=== PATIENT | male | born 1960 | race Caucasian/White ===

== ENCOUNTER 2020-10-07 10:25 | Outpatient (CLI) | payer MEDICARE, MEDICAID, SELFPAY ==
--- NOTE | ~2020-10-07 | XR_ITS ---
EXAMINATION: XR chest 2V DATE: 10/07/2020 10:38 INDICATION: Pleural plaque without asbestos. TECHNIQUE: Frontal and lateral views of the chest were obtained. COMPARISON: Chest 2 views 10/25/2011 FINDINGS: The chest demonstrates clear lungs without pneumonia, pleural effusion, or pneumothorax. Th e heart size is normal. IMPRESSION: 1. No acute cardiopulmonary disease. Reviewed, dictated and finalized at location A.
== END 2020-10-07 10:26 | disposition home or self-care (01) ==
PROVIDERS: PCP Internal Medicine; Visit Provider Internal Medicine
DX: J92.9 Pleural plaque without asbestos (principal)
CPT/HCPCS: 71046

== ENCOUNTER 2020-10-07 10:46 | Emergency (ER) | payer MEDICARE, MEDICAID, SELFPAY ==
[2020-10-07 11:03] VITALS: BP 170/78; PULSE 87; RESP 14; TEMP 35.8; O2SAT 100
--- NOTE | 2020-10-07 11:12 | ED.GENADULT ---
HPI - General Adult General Chief complaint: Anxiety Stated complaint: Anxiety with High Blood Pressure Time Seen by Provider: 10/07/20 10:53 Source: patient Mode of arrival: ambulatory Limitations: other (Poor historian, contradicts self throughout exam) History of Present Illness HPI narrative: Patient presents for evaluation of anxiety. He states he has an underlying history of anxiety for which she is prescribed Xanax 3 times daily as needed. He last took the medication yesterday. It sounds like he has experienced some increased stress related to visitors staying with him. He indicates he was hospitalized at [facility] about six months ago and had an abnormal CXR. He went today for follow up CXR. He states he felt increasingly anxious so decided to come to the ER for further evaluation. He has experienced intermittent chest pain over the last several years. Pain is in sternal region, without descriptive quality or numerical rating. He has experienced a popping sensation in his mouth for several years. He is a poor historian and contradicts himself throughout my interview It sounds like he had an elevated BP at home yesterday but his reading at home today was 130/80's. He also has an underlying hx of DM and is compliant with 16 units of basaglar. Related Data Home Medications Medication Instructions Recorded Confirmed alprazolam 0.5 mg tablet 0.5 mg PO TID PRN 06/05/20 09/19/20 Allergies Allergy/AdvReac Type Severity Reaction Status Date / Time No Known Allergies Allergy Verified 10/07/20 11:10 Review of Systems Review of Systems: Narrative: CONSTITUTIONAL: Denies fever, chills, or sweats. EYES: Denies visual changes, redness, or discharge. ENT: Denies rhinorrhea, congestion, sore throat, or otalgia. Reports popping sensation in the mouth CARDIOVASCULAR: Reports chronic intermittent chest pain, none currently. Denies palpitations, or edema. RESPIRATORY: Denies cough or dyspnea. GASTROINTESTINAL: Denies abdominal pain, nausea, vomiting, or diarrhea. GENITOURINARY: Denies dysuria or hematuria. SKIN: Denies rash or itching. MUSCULOSKELETAL: Denies back pain, joint pain, or myalgia. NEUROLOGIC: Denies headache, numbness, dizziness, or weakness. PSYCHIATRIC: Reports anxiety PMFSH Past Medical History Medical History Abdominal aortic aneurysm Adrenal adenoma Anxiety Arterial atherosclerosis Degenerative disc disease at L5-S1 level Diabetes mellitus Fatty liver disease, nonalcoholic Heart disease Hepatic artery stenosis HTN (hypertension) Inguinal hernia Kidney disease Peripheral neuropathy Pleural plaque Surgical History Surgical History History of shoulder surgery 2001 Family History Family History Mother Alzheimer disease Father Lung cancer Social History Social History Smoking status: Former smoker Tobacco type: cigarettes Alcohol intake: never Substance use: never Substance use type: does not use Gender identity (if verbalized by the patient): Male Exam Narrative: Exam Narrative: GENERAL: Well-appearing, well-nourished, and in no acute distress. HEAD: Normocephalic, atraumatic. EYES: PERRLA and EOMI. ENT: Nares clear, no rhinorrhea or epistaxis. Mucous membranes moist. Oropharynx without tonsillar hypertrophy exudate or other lesions. Bilateral TMs pearly ngo nonbulging NECK: Supple. No adenopathy or masses. No carotid bruits or JVD CHEST: Clear to auscultation. No respiratory distress. No wheezes rales or rhonchi HEART: Regular rate and rhythm. Normal peripheral pulses. ABDOMEN: Soft, nontender, nondistended, normal active bowel sounds. EXTREMITIES: Normal range of motion. No edema. SKIN: Warm, dry, no rash. NEURO: No focal deficits
--- NOTE | 2020-10-07 11:13 | ECG_ITS ---
Measurements Intervals [place] Rate: 66 P: 76 SC: 185 QRS: -11 QRSD: 78 T: 72 QT: 375 QTc: 395 Interpretive Statements SINUS RHYTHM WITH SINUS ARRHYTHMIA BORDERLINE R WAVE PROGRESSION, ANTERIOR LEADS BASELINE ARTIFACT- I, II, AVR, AVL BORDERLINE ECG Electronically Signed On 10-07-2020 12:13:18 CDT by Dwaine Johnson D.O.
[2020-10-07 11:25] LABS: Basophils Absolute Auto 0.1 K/mm3 (0.0-0.1); Basophils Percent Auto 0.7 % (0.2-1.2); Eosinophils Absolute Auto 0.2 K/mm3 (0-0.3); Eosinophils Percent Auto 1.9 % (0-4.4); Hemoglobin 16.8 g/dL (14.0-18.0); Immature Granulocyte Absolute 0.02 K/mm3 (0.00-0.031); Immature Granulocyte Percent A 0.2 % (0-0.5); Lymphocytes Absolute Auto 2.36 K/mm3 (0.9-3.2); Lymphocytes Percent Auto 26.3 % (18.3-44.2); Mean Corpuscular HGB Conc 33.6 g/dl (32-36); Mean Corpuscular Hemoglobin 31.3 pg (26-34); Mean Corpuscular Volume 93.1 fl (80-100); Mean Platelet Volume 11.5 fl (7.4-10.4); Monocytes Absolute Auto 0.6 K/mm3 (0.1-0.6); Monocytes Percent Auto 6.3 % (2.6-8.5); Neutrophils Absolute Auto 5.8 K/mm3 (1.3-6.7); Neutrophils Percent Auto 64.6 % (45.5-73.1); Platelet Count Result 163 k/mm3 (150-375); Red Blood Count 5.37 M/mm3 (4.6-6.20); Red Cell Distribution Width 12.6 % (11.5-14.5)
[2020-10-07 11:27] VITALS: BP 153/76; PULSE 66; RESP 14; O2SAT 99
[2020-10-07] MEDS: hydrOXYzine pamoate 25 MG CAPSULE PO (11:27)
[2020-10-07 11:34] LABS: Alanine Aminotransferase 52 U/L (4-50); Albumin Level 4.7 g/dL (3.5-5.1); Alkaline Phosphatase 71 U/L (38-126); Anion Gap 9 mmol/L (8-16); Aspartate Amino Transferase 40 U/L (17-59); Bilirubin,Total 0.9 mg/dL (0.2-1.3); Blood Urea Nitrogen 15 mg/dL (9-20); Calcium 9.5 mg/dL (8.4-10.2); Carbon Dioxide 25 mmol/L (22-30); Chloride 104 mmol/L (98-107); Estimated CRCL calculation 57 ml/min; Estimated Glomerular Filt Rate > 60; Glucose 150 mg/dL (75-110); Potassium 3.9 mmol/L (3.4-5.0); Sodium 138 mmol/L (137-145)
[2020-10-07 11:45] LABS: Troponin I < 0.012 ng/mL (0.000-0.034)
[2020-10-07 13:32] VITALS: BP 156/81; PULSE 76; RESP 14; O2SAT 99
== END 2020-10-07 13:33 | disposition home or self-care (01) ==
PROVIDERS: Emergency Provider Nurse Practitioner; PCP Internal Medicine
DX: F41.9 Anxiety disorder, unspecified (principal); N28.9 Disorder of kidney and ureter, unspecified; E11.42 Type 2 diabetes mellitus with diabetic polyneuropathy; I10 Essential (primary) hypertension; M51.37 Other intervertebral disc degeneration, lumbosacral region; I70.8 Atherosclerosis of other arteries; Z87.891 Personal history of nicotine dependence; R94.31 Abnormal electrocardiogram [ECG] [EKG]; Z79.4 Long term (current) use of insulin
CPT/HCPCS: 36415; 71046; 80053; 84443; 84484; 85025; 93005; 99284; A9270

== ENCOUNTER 2021-05-28 02:30 | Day surgery (SDC) | payer MEDICARE, MEDICAID, SELFPAY ==
[2021-05-21 14:06] VITALS: BMI 24.7
--- NOTE | 2021-05-27 10:51 | PM.HPGS ---
History of Present Illness History of Present Illness Consent: Risks, benefits, and alternatives have been discussed and questions answered. Patient agrees to proceed with procedure. Chief complaint: neoplasm screening Narrative: Say Collins is a 61 year old male who was referred for colon cancer screening Review of Systems Review of Systems: All systems reviewed & are unremarkable except as noted in HPI and below PMFSH Past Medical History Medical History Abdominal aortic aneurysm Adrenal adenoma Anxiety Arterial atherosclerosis Degenerative disc disease at L5-S1 level Diabetes mellitus Fatty liver disease, nonalcoholic Heart disease Hepatic artery stenosis HTN (hypertension) Inguinal hernia Kidney disease Peripheral neuropathy Pleural plaque Surgical History Surgical History History of shoulder surgery 2001 Family History Family History Mother Alzheimer disease Father Lung cancer Social History Social History Smoking packs per day: 1 Smoking cigarettes per day: 20.0 Years smoked: 37 Smoking pack-years: 37.00 Smoking status: Former smoker Tobacco type: cigarettes Alcohol intake: never Substance use: never Substance use type: does not use Living arrangements: alone Gender identity (if verbalized by the patient): Male Spiritual care concerns: No Meds Home Medications and Allergies Home Medications Medication Instructions Recorded Confirmed Type pen needle, diabetic 31 gauge x #100 ea 01/12/21 05/28/21 Rx 3/16 empagliflozin 10 mg tablet 10 mg PO DAILY #90 tablet 01/19/21 05/28/21 Rx atorvastatin 10 mg tablet 10 mg PO DAILY #90 tablet 02/05/21 05/28/21 Rx blood sugar diagnostic #100 ea 03/09/21 05/28/21 Rx alprazolam 0.5 mg tablet 0.5 mg PO DAILY PRN #30 tablet 03/12/21 05/28/21 Rx sildenafil 50 mg tablet 50 mg PO DAILY PRN #30 tablet MDD 03/13/21 05/28/21 Rx 100mg semaglutide 7 mg tablet 7 mg PO DAILY #30 tablet 04/16/21 05/28/21 Rx escitalopram oxalate 10 mg tablet 10 mg PO DAILY #30 tablet 05/08/21 05/28/21 Rx hydralazine 25 mg tablet 25 mg PO TID #90 tablet 05/15/21 05/28/21 Rx dulaglutide 0.75 mg/0.5 mL 0.75 mg SUBCUT WEEKLY #2 ml 05/23/21 05/28/21 Rx subcutaneous pen injector Allergies Allergy/AdvReac Type Severity Reaction Status Date / Time No Known Allergies Allergy Verified 05/28/21 11:24 Exam Resp: Auscultation: clear to auscultation bilaterally Cardio: Rate: regular rate Rhythm: regular rhythm GI: GI Palp: Yes Soft to palpation and No Tenderness to palpation present (GI) Assessment and Plan Assessment and plan (1) Colon cancer screening: Code(s): Z12.11 - Encounter for screening for malignant neoplasm of colon Status: Acute Assessment and Plan: Colonoscopy with possible biopsy or polypectomy or cautery or injection of substances.
[2021-05-28 11:18] VITALS: BP 142/73; PULSE 54; RESP 18; TEMP 36.4; O2SAT 100
[2021-05-28] MEDS: LACTATED RINGERS 1,000 ML 150 ML IV CONT (11:48)
[2021-05-28 11:49] LABS: Glucose Point of Care 105 mg/dl (65-105)
[2021-05-28 12:35] VITALS: BP 123/69; PULSE 63; RESP 15; O2SAT 99
[2021-05-28 12:45] VITALS: BP 119/74; PULSE 72; RESP 23; O2SAT 100
[2021-05-28 13:01] VITALS: BP 136/84; PULSE 62; RESP 18; O2SAT 100
== END 2021-05-28 13:11 | disposition home or self-care (01) ==
PROVIDERS: PCP Internal Medicine; Visit Provider Internal Medicine Gastroenterology
PROC: 0DJD8ZZ Inspection of Lower Intestinal Tract, Via Natural or Artificial Opening Endoscopic (ICD-10-PCS; CPT 45378; principal; 2021-05-28 12:30)
DX: Z12.11 Encounter for screening for malignant neoplasm of colon (principal); D12.8 Benign neoplasm of rectum; I70.90 Unspecified atherosclerosis; I71.4 Abdominal aortic aneurysm, without rupture; I10 Essential (primary) hypertension; K76.0 Fatty (change of) liver, not elsewhere classified; E11.42 Type 2 diabetes mellitus with diabetic polyneuropathy; F41.9 Anxiety disorder, unspecified; E11.21 Type 2 diabetes mellitus with diabetic nephropathy; M51.37 Other intervertebral disc degeneration, lumbosacral region; Z87.891 Personal history of nicotine dependence; Z79.4 Long term (current) use of insulin
CPT/HCPCS: 45385; 82948; 88305; J2704; J7120

== ENCOUNTER 2021-07-23 13:35 | Outpatient (CLI) | payer MEDICARE, MEDICAID, SELFPAY ==
--- NOTE | ~2021-07-23 | CT_ITS ---
EXAMINATION: CT abdomen w con DATE: 07/23/2021 14:14 INDICATION: Adrenal adenoma. TECHNIQUE: Computed tomography (CT) of the abdomen was performed with 100 mL Omnipaque 350 intravenou s contrast. Automated exposure control and iterative reconstruction technique were employed. The dose -length product was 223.84 mGy-cm. COMPARISON: None. FINDINGS: The visualized portions of the lung bases demonstrate mild dependent atelectasis. There is a calcified pleural plaque on the left. No pleural effusion. The heart size is normal. No pericardial effusion. The liver, gallbladder, spleen, pancreas, and left adrenal gland are normal. There is a 2. 5 cm mass in right adrenal gland measuring soft tissue attenuation. The kidneys are normal. There are no dilated loops of bowel. There are no pathologically enlarged lymph nodes. There is no free intra peritoneal fluid. There is severe lower lumbar spondylosis. IMPRESSION: 1. 2.5 cm mass in right adrenal gland. In the absence of known malignancy, this finding is likely an adenoma. Reviewed, dictated and finalized at location E. ER TENDER
--- NOTE | ~2021-07-23 | CT_ITS ---
EXAMINATION:CT lung screening DATE: 07/23/2021 14:14 INDICATION: Personal history of nicotine dependence. TECHNIQUE: Computed tomography (CT) of the chest was performed without intravenous contrast. Automate d exposure control and iterative reconstruction technique were employed. The dose-length product (DLP ) was 73.30 mGy-cm. COMPARISON: None. FINDINGS: There is mild scarring at the lung apices. There is mild emphysema. There is mild dependent atelectasis bilaterally. There are calcified pleural plaques on the left. No pleural effusion. The h eart size is normal. There are coronary artery calcifications. No pericardial effusion. There is a 2. 5 cm mass in right adrenal gland measuring soft tissue attenuation, likely an adenoma in the absence of known cancer history. There is mild thoracic spondylosis. IMPRESSION: 1. Lung-RADS category 2: Benign appearance or behavior. Continue annual screening with noncontrast lo w-dose chest CT in 12 months. Reviewed, dictated and finalized at location E. [employer] IMPRESSION: 1. Lung-RADS category 2: Benign appearance or behavior. Continue annual screeni ng with noncontrast low-dose chest CT in 12 months.
[2021-07-23 14:07] LABS: Estimated Glomerular Filt Rate > 60
== END 2021-07-23 13:36 | disposition home or self-care (01) ==
LOC: ANHIMG 13:40
PROVIDERS: PCP Internal Medicine; Visit Provider Internal Medicine
DX: D35.00 Benign neoplasm of unspecified adrenal gland (principal); Z87.891 Personal history of nicotine dependence
CPT/HCPCS: 71271; 74160; Q9967

== ENCOUNTER 2022-02-23 09:56 | Outpatient (CLI) | payer MEDICARE, MEDICAID, SELFPAY ==
--- NOTE | ~2022-02-23 | XR_ITS ---
EXAMINATION: XR chest 2V Exam Date/Time: 02/23/2022 10:05 CDT HISTORY: J92.9 - Pleural plaque without asbestos FOLLOW UP Comparison: 10/07/2020. RESULT: Lines, tubes, and devices: None. Lungs and pleura: Clear. Cardiomediastinal silhouette: Stable. Other: No acute osseous or upper abdominal finding. IMPRESSION: No acute cardiopulmonary process. Reviewed, dictated and finalized at location K.
== END 2022-02-23 09:57 | disposition home or self-care (01) ==
PROVIDERS: PCP Internal Medicine; Visit Provider Internal Medicine
DX: J92.9 Pleural plaque without asbestos (principal)
CPT/HCPCS: 71046

== ENCOUNTER 2023-07-22 11:12 | Outpatient (CLI) | payer MEDICARE, MEDICAID, SELFPAY ==
--- NOTE | 2023-08-08 15:03 | WPDSLEEPSTUD ---
Sleep Study Date of Study: 07/22/23 Ordering Provider: Desi Zaidi MD Interpreting Physician: Desi Zaidi MD Sleep Study Type: Polysomnogram Height: 1.73 m Weight: 81.647 kg Body Mass Index: 27.3 Neck Circumference (inches): 16 [place]: 17 Reason for Sleep Study Hypersomnolence Sleep History Say Collins is a 63-year-old man with excessive daytime sleepiness. He never awakens from sleep feeling short of breath. He never wakes at night with heartburn, belching or coughing.??He constantly snores, and always snores loudly enough that others complain. He frequently has trouble sleeping when he has a cold. He rarely wakes up gasping for breath during the night. He constantly has breathing problems at night. He never sweats excessively at night. He frequently notices his heart pounding or beating irregularly during the night. He frequently falls asleep during the day. He frequently falls asleep involuntarily, only rarely falls asleep while driving. He never experiences loss of muscle tone with strong emotion. He frequently has daytime difficulty at work due to excessive sleepiness. He rarely feels paralyzed on waking or falling asleep. He occasionally experiences vivid dreams upon waking or falling asleep. He never feels afraid of going to sleep. He occasionally has nightmares. He frequently recalls his dreams. He never has thoughts racing through his mind. He occasionally feels sad or depressed. He occasionally feels anxiety. He rarely notices parts of his body jerk. He never kicks during the night. He constantly feels crawling or aching feelings in his legs. He constantly feels leg pain at night. He rarely has morning jaw pain, occasionally grinds his teeth at night. He constantly feels bothered by pain during the day, frequently awakened by pain during the night. He frequently wakes up feeling stiff in the morning, and he constantly wakes feeling sore or achy. He constantly awakens with pain in his neck, spine, or joints. Normal bedtime is 8:00 p.m., falling asleep within 2 minutes, waking 3 times at night. while awake he goes to the bathroom. He is able to return to sleep within 5 minutes sometimes a little bit longer up to 1/2 hour. he estimates getting between 6-1/2 and 7-1/2 hours of sleep at night. He does not take naps in the afternoon or evening. A short nap lasting 10-15 minutes is not refreshing. He is usually drowsy for 3 hours after waking. Habits:??Tobacco: Former smoker, quit years ago Caffeine: 16 oz of coffee a day. Alcohol: none Recreational substances: none [facility] Past Medical History Medical History Abdominal aortic aneurysm Adrenal adenoma Adrenal adenoma Anxiety Arterial atherosclerosis Degenerative disc disease at L5-S1 level Diabetes mellitus Fatty liver disease, nonalcoholic Heart disease Hepatic artery stenosis HTN (hypertension) Inguinal hernia Kidney disease Peripheral neuropathy Pleural plaque Surgical History Surgical History History of shoulder surgery 2001 Family History Family History Mother Alzheimer disease Father Lung cancer Social History Social History Smoking packs per day: 1 Smoking cigarettes per day: 20.0 Years smoked: 37 Smoking pack-years: 37.00 Smoking status: Former smoker Tobacco type: cigarettes Alcohol intake: never Substance use: never Substance use type: does not use Lack of Transportation: No Lack of Food: Never True Current Housing: I Have Housing Concerned About Future Housing: No Difficulty Paying Gas/Electric Bills: No Difficulty Paying for Meds: No Currently Unemployed: Decline to Answer Education: Trade/Vocational Certificate Difficulty w/ Childcare or Family Care: No Living arrange
[2023-08-08 15:05] VITALS: BMI 27.3
== END 2023-07-23 06:58 | disposition home or self-care (01) ==
LOC: ANHCSM 11:13
PROVIDERS: PCP Internal Medicine; Visit Provider Internal Medicine Critical Care Medicine
DX: G25.81 Restless legs syndrome (principal); G47.33 Obstructive sleep apnea (adult) (pediatric); G47.10 Hypersomnia, unspecified
CPT/HCPCS: 95810

== ENCOUNTER 2023-08-26 10:09 | Outpatient (CLI) | payer MEDICARE, MEDICAID, SELFPAY ==
--- NOTE | ~2023-08-26 | CT_ITS ---
EXAMINATION: CT sinus wo con DATE: 08/26/2023 10:29 INDICATION: Chronic sinusitis TECHNIQUE: Computed tomography (CT) of the paranasal sinuses was performed without contrast. Iterativ e reconstruction technique was employed. Exam dose: 273.54 mGy-cm total exam DLP. COMPARISON: None FINDINGS: There is prominent leftward deviation of the nasal septum. Patricia bullosa of the middle nasal turbinates, more prominent on the right. Relatively symmetric prom inent soft tissue swelling of the inferior nasal turbinates. There is mild mucoperiosteal thickening at the maxillary ostium and infundibulum on both sides, witho ut complete obstruction of the ostiomeatal units. There are several polyps or mucous retention cysts of the left maxillary sinus and minimal right maxi llary sinus inferomedial mucoperiosteal thickening. There is soft tissue thickening at the frontoethmoid area is bilaterally, with minimal mucoperiosteal thickening of the frontal sinuses. There is moderately prominent patchy opacification of the ethmoid air cells. There is minimal mucosal periosteal thickening of the sphenoid sinuses. The mastoid air cells are well-developed and aerated bilaterally. IMPRESSION: Prominent leftward deviation of nasal septum Bilateral patricia bullosa of middle nasal turbinates, more prominent on the right Soft tissue thickening of the maxillary ostium and infundibulum bilaterally, without obstruction Prominent soft tissue thickening at the frontoethmoid areas bilaterally, patchy opacification of bila teral ethmoid air cells, minimal mucosal periosteal thickening of the frontal sinuses, right maxillar y sinus and bilateral sphenoid sinuses Several mucous retention cysts or polyps of the left maxillary sinus Reviewed, dictated and finalized at Location A. Reviewed, dictated and finalized at location A. IMPRESSION: Prominent leftward deviation of nasal septum Bilateral patricia bullosa of middle nasal turbinates, more prominent on the righ t Soft tissue thickening of the maxillary ostium and infundibulum bilaterally, wi thout obstruction Prominent soft tissue thickening at the frontoethmoid areas bilaterally, patchy opacification of bilateral ethmoid air cells, minimal mucosal periosteal thick ening of the frontal sinuses, right maxillary sinus and bilateral sphenoid sinu ses Several mucous retention cysts or polyps of the left maxillary sinus
== END 2023-08-26 10:10 | disposition home or self-care (01) ==
LOC: ANHIMG 10:11
PROVIDERS: PCP Internal Medicine; Visit Provider Otolaryngology
DX: J34.89 Other specified disorders of nose and nasal sinuses (principal); J34.2 Deviated nasal septum; J32.9 Chronic sinusitis, unspecified
CPT/HCPCS: 70486

== ENCOUNTER 2023-10-03 10:12 | Outpatient (CLI) | payer MEDICARE, MEDICAID, SELFPAY ==
--- NOTE | 2023-10-03 10:36 | ECG_ITS ---
SEE SCANNED COPY FOR CONFIRMED REPORT MTDD
[2023-10-03 11:19] LABS: Anion Gap 6 mmol/L (4-12); Blood Urea Nitrogen 14 mg/dL (9-20); Calcium 9.3 mg/dL (8.4-10.2); Carbon Dioxide 27 mmol/L (22-30); Chloride 105 mmol/L (98-107); Estimated Glomerular Filt Rate > 60; Glucose 109 mg/dL (65-110); Potassium 4.2 mmol/L (3.4-5.0); Sodium 138 mmol/L (137-145)
== END 2023-10-03 10:13 | disposition home or self-care (01) ==
PROVIDERS: PCP Internal Medicine; Visit Provider Anesthesiology
DX: Z01.818 Encounter for other preprocedural examination (principal); E11.9 Type 2 diabetes mellitus without complications
CPT/HCPCS: 36415; 80048; 93005

== ENCOUNTER 2023-10-07 01:07 | Day surgery (SDC) | payer MEDICARE, MEDICAID, SELFPAY ==
--- NOTE | 2023-09-29 14:48 | PC.NURSE ---
Report to the Outpatient Waiting Room, entrance under the green pavilion located off [facility], at time _1030_ on date _10/07/23__. Planned Procedure Time: __1230. Time changes happen often and if your time is changed the preop area will call you the afternoon before. - You and your visitor will be asked to self-screen and do not enter if you have any COVID symptoms. - A mask is optional within the hospital at this time. Patients may have clear liquids (water, carbonated beverages, clear teas, apple juice) until 3 hours prior to surgery with a maximum of 20 ounces. - No food from midnight until time of surgery - Infants may have breast milk until 4 hours before surgery, formula 6 hours prior to surgery. - Children will be allowed to drink immediately following surgery. If applicable, please bring a bottle or sippy cup to assist with drinking. Juice, water, soda, and popsicles are readily available. For infants on formula, please bring formula the day of surgery. Pacifiers are allowed. Take the following medications with a SIP of water the morning of surgery: ALPRAZOLAM, AMLODIPIN, GABAPENTIN___ DO NOT STOP ANY OF YOUR OTHER PRESCRIPTION MEDICATIONS PRIOR TO SURGERY ?EXCEPT THE FOLLOWING Medications to discontinue per physician NONE Date to take last dose Please no make-up, nail tamazight, hairspray, perfume, deodorant, or body powder the day of surgery. No jewelry (including any body piercings) or valuables the day of surgery, leave them at home. Please take a shower or bath the night before, or the morning of, surgery with an antibacterial soap. Wear comfortable, loose fitting clothing. Children are encouraged to wear pajamas. - Jewelry must be removed prior to entering the operating room. Rings and piercings that are not removed may be cut off. - The hospital will not accept responsibility for valuables. - Please leave all valuables, including medications, at home the day of surgery. If you are going home after surgery, a licensed driver license reviewing officer must drive you home. - NO public transportation without another adult if you receive anesthesia. - We recommend that an adult stay with you for 24 hours following discharge. - We also recommend that you do not drive, make important decision, drink alcoholic beverages, or take any drugs that were not prescribed by your health care provider for at least 24 hours after your discharge time. For Pediatric surgeries, we recommend two adults accompany the child home. Follow any additional instructions given to you from your surgeon. If you or anyone in your household have experienced Covid symptoms in the past week, please notify your surgeon or the nurse liaison at the phone number below for possible testing. Telephone instructions given to _RAZO__and asked if any additional questions and then verbalized understanding. Patient advised to call surgeon office or pre surgery nurse liaison [phone] if any additional questions.
--- NOTE | 2023-10-06 16:51 | PM.IMHP ---
H&P: HPI History of Present Illness Date/Time: 10/06/23 16:51 Chief Complaint: chronic sinuses septal deviation turbinate hypertrophy Narrative: planned procedure Review of Systems Review of Systems: All systems reviewed & are unremarkable except as noted in HPI and below [facility] Past Medical History Medical History Abdominal aortic aneurysm Adrenal adenoma Adrenal adenoma Anxiety Arterial atherosclerosis Degenerative disc disease at L5-S1 level Diabetes mellitus Fatty liver disease, nonalcoholic Heart disease Hepatic artery stenosis HTN (hypertension) Inguinal hernia Kidney disease Peripheral neuropathy Pleural plaque Surgical History Surgical History History of shoulder surgery 2001 Family History Family History Mother Alzheimer disease Father Lung cancer Social History Social History Smoking packs per day: 1 Smoking cigarettes per day: 20.0 Years smoked: 40 Smoking pack-years: 40.00 Smoking status: Former smoker Tobacco type: cigarettes Alcohol intake: never Substance use: never Substance use type: does not use Lack of Transportation: No Lack of Food: Never True Current Housing: I Have Housing Concerned About Future Housing: No Difficulty Paying Gas/Electric Bills: No Difficulty Paying for Meds: No Currently Unemployed: Decline to Answer Education: Trade/Vocational Certificate Difficulty w/ Childcare or Family Care: No Living arrangements: with family Gender identity (if verbalized by the patient): Male Spiritual care concerns: No Meds Home Medications and Allergies Home Medications Medication Instructions Recorded Confirmed Type pen needle, diabetic 31 gauge x #100 ea 01/12/21 09/29/23 Rx 3/16 (BD Ultra-Fine Mini Pen Needle) blood sugar diagnostic (OneTouch #100 ea 03/09/21 09/29/23 Rx Verio test strips) acetaminophen 325 mg capsule 325 mg PO Q6H PRN Pain 09/13/21 09/29/23 History (Tylenol) sildenafil 50 mg tablet 50 - 100 mg PO DAILY PRN sexual 09/24/21 09/29/23 Rx activity #30 tabs hydroxyzine HCl 25 mg tablet 25 mg PO BID PRN nausea and 03/03/23 09/29/23 Rx vomiting #60 tabs losartan 50 mg tablet 100 mg PO DAILY 08/14/23 09/29/23 History atorvastatin 10 mg tablet 10 mg PO DAILY #30 tabs 09/23/23 09/29/23 Rx omeprazole 20 mg capsule,delayed 20 mg PO BID #60 caps 09/26/23 09/29/23 Rx release alprazolam 0.5 mg tablet 0.5 mg PO PRN PRN Anxiety 09/29/23 09/29/23 History amlodipine 5 mg tablet 5 mg PO DAILY 09/29/23 09/29/23 History bupropion HCl 300 mg 24 hr tablet, 300 mg PO DAILY 09/29/23 09/29/23 History extended release gabapentin 300 mg capsule 300 mg PO BID 09/29/23 09/29/23 History insulin aspart U-100 100 unit/mL 14 unit subcut AC 09/29/23 09/29/23 History subcutaneous solution (Novolog U-100 Insulin aspart) insulin degludec 100 unit/mL (3 20 unit subcut HS 09/29/23 09/29/23 History mL) subcutaneous pen (Tresiba FlexTouch U-100 insulin) lumateperone 42 mg capsule 42 mg PO HS 09/29/23 09/29/23 History (Caplyta) Allergies Allergy/AdvReac Type Severity Reaction Status Date / Time No Known Allergies Allergy Verified 08/14/23 10:09 Exam Narrative: septal deviation turbinate hypertrophy chronic appearing sinuses Assessment and Plan Assessment and plan (1) Hypertrophy of both inferior nasal turbinates: Code(s): J34.3 - Hypertrophy of nasal turbinates Status: Acute Assessment and Plan: or for endoscopic assisted septoplasty bilateral inferior turbinate reduction with outfracture endoscopic image guided maxillary antrostomies total ethmoidectomies sphenoidotomies frontal sinusotomies risks discussed bleeding infection da
[2023-10-07] VITALS (10 sets, daily range): BP systolic 129–159; BP diastolic 67–86; PULSE 69–100; RESP 13–16; TEMP 36.3–36.8; O2SAT 92–100; BMI 29.5
--- NOTE | 2023-10-07 07:20 | WPDHPUPDATE1 ---
History and Physical Update Update Date/Time: 10/07/23 07:20 History and Physical has been reviewed, including an updated exam of the patient. There are NO changes in the patient's condition. Risks, benefits, and alternatives have been discussed and questions answered. Patient agrees to proceed with procedure.
--- NOTE | 2023-10-07 08:06 | WPDHPUPDATE1 ---
History and Physical Update Update Date/Time: 10/07/23 08:06 History and Physical has been reviewed, including an updated exam of the patient. There are NO changes in the patient's condition. Risks, benefits, and alternatives have been discussed and questions answered. Patient agrees to proceed with procedure. at resection right patricia bullosa of not already on the consent
[2023-10-07] MEDS: ACETAMINOPHEN 500 MG TABLET 1000 MG PO (10:57)
[2023-10-07] MEDS: LACTATED RINGERS 1,000 ML 30 ML IV CONT ×3 (11:09→16:35)
--- NOTE | 2023-10-07 11:36 | WPDANESEPPF ---
Anes - Initial Pre Proc Eval Procedure: Operation Date: 10/07/23 12:30 Proposed Procedures p Image Guided Bilateral Inferior Turbinate Reduction with Outfracture, Bilateral Maxillary Antrostomy, Bilateral Total Ethmoidectomy, Bilateral Sphenoidotomy Bilateral Frontal Sinusotomy - Jacob Gold MD s Endoscopic Assisted Septoplasty - Jacob Gold MD Date/Time: 10/07/23 11:36 Surgeon: Jacob Gold MD Pre Op Diagnosis: Chr Sinusitis, Septal Deviation Patient Data Age: 63 Gender: M Height: 1.74 m Weight: 89.3 kg Last Vital Signs Temp 98.2 F 10/07/23 10:51 Pulse 69 10/07/23 10:51 Resp 16 10/07/23 10:51 BP 129/67 10/07/23 10:51 Pulse Ox 97 10/07/23 10:51 O2 Del Method Room Air 10/07/23 10:51 Allergies Allergy/AdvReac Type Severity Reaction Status Date / Time No Known Allergies Allergy Verified 10/07/23 10:41 Home Medications Medication Instructions Recorded Confirmed Type pen needle, diabetic 31 gauge x #100 ea 01/12/21 09/29/23 Rx 3/16 (BD Ultra-Fine Mini Pen Needle) blood sugar diagnostic (OneTouch #100 ea 03/09/21 09/29/23 Rx Verio test strips) acetaminophen 325 mg capsule 325 mg PO Q6H PRN Pain 09/13/21 09/29/23 History (Tylenol) sildenafil 50 mg tablet 50 - 100 mg PO DAILY PRN sexual 09/24/21 09/29/23 Rx activity #30 tabs hydroxyzine HCl 25 mg tablet 25 mg PO BID PRN nausea and 03/03/23 09/29/23 Rx vomiting #60 tabs losartan 50 mg tablet 100 mg PO DAILY 08/14/23 09/29/23 History atorvastatin 10 mg tablet 10 mg PO DAILY #30 tabs 09/23/23 09/29/23 Rx omeprazole 20 mg capsule,delayed 20 mg PO BID #60 caps 09/26/23 09/29/23 Rx release alprazolam 0.5 mg tablet 0.5 mg PO PRN PRN Anxiety 09/29/23 09/29/23 History amlodipine 5 mg tablet 5 mg PO DAILY 09/29/23 09/29/23 History bupropion HCl 300 mg 24 hr tablet, 300 mg PO DAILY 09/29/23 09/29/23 History extended release gabapentin 300 mg capsule 300 mg PO BID 09/29/23 09/29/23 History insulin aspart U-100 100 unit/mL 14 unit subcut AC 09/29/23 09/29/23 History subcutaneous solution (Novolog U-100 Insulin aspart) insulin degludec 100 unit/mL (3 20 unit subcut HS 09/29/23 09/29/23 History mL) subcutaneous pen (Tresiba FlexTouch U-100 insulin) lumateperone 42 mg capsule 42 mg PO HS 09/29/23 09/29/23 History (Caplyta) Patient hx anesthesia problems: none Family hx anesthesia problems: none Results Review: All pre-operative results and documents have been reviewed as part of the pre-operative evaluation. [facility] Past Medical History Medical History Abdominal aortic aneurysm Adrenal adenoma Adrenal adenoma Anxiety Arterial atherosclerosis Degenerative disc disease at L5-S1 level Diabetes mellitus Fatty liver disease, nonalcoholic Heart disease Hepatic artery stenosis HTN (hypertension) Inguinal hernia Kidney disease Peripheral neuropathy Pleural plaque Surgical History Surgical History History of shoulder surgery 2001 Family History Family History Mother Alzheimer disease Father Lung cancer Social History Social History Smoking packs per day: 1 Smoking cigarettes per day: 20.0 Years smoked: 40 Smoking pack-years: 40.00 Smoking status: Former smoker Tobacco type: cigarettes Alcohol intake: never Substance use: never Substance use type: does not use Lack of Transportation: No Lack of Food: Never True Current Housing: I Have Housing Concerned About Future Housing: No Difficulty Paying Gas/Electric Bills: No Difficulty Paying for Meds: No Currently Unemployed: Decline to Answer Education: Trade/Vocational Certificate Difficulty w/ Childcare or Family Care: No Living arrangements: with family G
[2023-10-07] MEDS: ceFAZolin 2 GM/D5W 50 ML 2 GM/50 ML BAG IVPB (11:54)
[2023-10-07] MEDS: OXYMETAZOLINE HCL 0.05% NAS 15 ML BTL (*BKC) 1 SPRAY NASAL (12:33)
[2023-10-07] MEDS: MUPIROCIN 2% OINT 22 GM TUBE 1 APPLIC EACH NARE (12:34)
[2023-10-07] MEDS: LIDO 1%/EPINEPHRINE 1:100,000 50 ML VIAL 20 ML INFILTRATE (12:34)
--- NOTE | 2023-10-07 16:06 | W.PM.PROC2 ---
Procedure Note - Detailed Date of Procedure 10/07/23 Pre-op Diagnosis Chr Sinusitis, Septal Deviation, turbinate hypertrophy, nasal septal perforation, right patricia bullosa Post-op Diagnosis Same Procedure Performed bilateral image guided endoscopic frontal sinusotomy total ethmoidectomies maxillary antrostomies sphenoidotomies, endoscopic assisted septoplasty, inferior turbinate reduction with outfracture bilaterally, closure of anterior nasal septal perforation with left-sided anterior ethmoidal artery flap. also resection right patricia bullosa Surgeon Jacob Gold MD Anesthesia General Indications See above Findings severely deviated left nasal septum small about 7 mm septal perforation well-healed anteriorly it had crust over it in the office which is why this was not noticed on prior exams. Patient did desire to have this closed voiced understanding of the risks of this prior to surgery. patient states the biopsied previously of the perforation previously biopsied and came back as nonmalignant. Severely polypoid disease tissue in the frontals right greater than left as well as ethmoids max is had minimal polypoid disease sphenoids minimal polypoid disease. Large turbinates well reduced Description of Procedure patient identified consent verified preop. Patient brought to the operating room. Time-out performed. General anesthesia induced endotracheal tube secured. Patient prepped draped position procedure confirmed 2nd time-out performed. Image guidance initiated confirmed. Afrin-soaked pledgets placed for 5 minutes then removed. 15 cc 1% lidocaine 1 100,000 parts epinephrine checked the bilateral nasal septum inferior turbinates and right patricia bullosa. [place] incision made left side left nasal septal flap elevated there was not 7 mm perforation anteriorly I used 1 just posterior to the perforation make the incision. Osteotome utilized to cross over left nasal septal flap elevated perforation in place. Deviated septum removed Rohit Moreno forceps Marie forceps and osteotome. No perforations turbinates reduced submucosal plane after stab incision was made anteriorly the bilateral procedure the inferior turbinates they were then outfractured tear on the left side. Right patricia bullosa resected using sickle bleed straight through cut microdebrider maxillary antrostomies performed with the ball-tip probe backbiter straight through cut and microdebrider great care was taken to ensure using a 30 degree scope that the surgical os connected to the natural os. No damage to orbits no damage to septum. Total ethmoidectomy performed with Kerrison image guidance no damage to orbit no damage to septum no damage to skull base every ethmoid cell was opened barring perhaps few against the orbit anteriorly. Sphenoid identified under image guidance opened bilaterally using Kerrison [place] microdebrider and sphenoid punch. No damage to carotid artery optic nerve or skull base. The region of the posterior septal artery was left intact bilaterally. Diffuse polypoid tissue thick mucus in the bilateral frontals as well right greater than left. Frontal sinusotomies performed bilaterally using image guidance Rodriguez. The these were then copiously irrigated out and propel stents were placed bilaterally. No plaque paste Nova pack placed bilaterally in the middle meatus. After these were were copiously irrigated sterile normal saline. At this point the septal perforation was rimmed using microdebrider and anterior ethmoidal artery flap was outlined using Bovie tip cautery on the left and moved anteriorly sutured into place covering the perforation nicely. Martinez splints were then placed bilaterally ensuring to cover the perforation repair. Patient tolerated the procedure well. Total blood loss 100-150 cc. I performed all dictated portions of procedure no complication care the patient given back to Anesthesiology. Estimated Blood Loss 150 Drains N
[2023-10-07] MEDS: fentaNYL CITRATE INJ (*CRX) 100 MCG/2 ML VIAL 25 MCG IV PUSH ×3 (16:25→17:56)
[2023-10-07] MEDS: oxyCODONE HCL (*CRX) 5 MG TAB IR PO (17:15)
== END 2023-10-07 18:20 | disposition home or self-care (01) ==
PROVIDERS: PCP Physician Assistant; Visit Provider Otolaryngology
PROC: (CPT 31240; principal; 2023-10-07 12:30)
PROC: (CPT 30520; 2023-10-07 12:30)
DX: J32.9 Chronic sinusitis, unspecified (principal); J34.3 Hypertrophy of nasal turbinates; J34.2 Deviated nasal septum; J34.89 Other specified disorders of nose and nasal sinuses; I11.9 Hypertensive heart disease without heart failure; E11.40 Type 2 diabetes mellitus with diabetic neuropathy, unspecified; K75.81 Nonalcoholic steatohepatitis (NASH); F41.9 Anxiety disorder, unspecified; Z79.4 Long term (current) use of insulin
CPT/HCPCS: 31240; 31256; 31257; 31276; 61782; 30630; 30140; 30520; 36415; 80048; 93005; A9270; C2625; J0690; J1100; J1170; J2250; J2405; J2704; J3010; J7050; J7120